=== PATIENT | male | born 1960 | race Caucasian/White ===

== ENCOUNTER 2021-12-04 09:36 | Day surgery (SDC) | payer MEDICARE ==
[2021-12-04] MEDS ORDERED: Lactated Ringers 1,000 ML IV ONE ×2 (09:46→13:08)
[2021-12-04] MEDS ORDERED: BETADINE 5% OPHTHALMIC 30 ML OP ONE (10:00)
[2021-12-04] MEDS ORDERED: TETRACAINE 0.5% STERI-UNIT SOL OP ONE ×2 (10:00)
[2021-12-04] MEDS ORDERED: Ak-Dilate OPHTHALMIC*** 1.065 ML, Cyclogyl 1% OPHTH SOL 1.065 ML, GATIFLOXACIN 0.5% OPH... OP ONE ×4 (10:00)
[2021-12-04] MEDS ORDERED: NON-FORMULARY ITEM OP ONE (10:00)
[2021-12-04] MEDS ORDERED: Lactated Ringers 1,000 ML IV SCH (10:00)
[2021-12-04] MEDS ORDERED: cefUROXime sodium 0.005 GM in Sodium Chloride Flush 30 ML*** 0.5 ML IJ ONE (10:00)
[2021-12-04] MEDS ORDERED: Xylocaine-Mpf 2% 5 Ml Vial ONE (12:47)
[2021-12-04] MEDS ORDERED: SUBLIMAZE 100 MCG/2 ML ONE (12:47)
[2021-12-04] MEDS ORDERED: DIPRIVAN 200 MG/20 ML IV ONE ×2 (12:47→13:04)
[2021-12-04] MEDS ORDERED: Versed 2 MG/2 ML Injection ONE (12:47)
[2021-12-04] MEDS ORDERED: Zofran 4 MG/2 ML VIAL IV PRN (13:00)
[2021-12-04] MEDS ORDERED: ACETAZOLAMIDE 250 MG TABLET PO ONE (13:00)
[2021-12-04] MEDS ORDERED: TRIMOXI 0.6 ML OPHTH INJECTION OP ONE (13:15)
[2021-12-04] MEDS ORDERED: MIOSTAT IO ONE (13:20)
[2021-12-04 13:34] VITALS: O2SAT 94
[2021-12-04 13:40] VITALS: PULSE 87
[2021-12-04 13:45] VITALS: BP 145/51
[2021-12-04] MEDS ORDERED: LIDOCAINE HCL 1% 50 MG/5 ML VL PF IJ ONE (15:01)
[2021-12-04] MEDS ORDERED: Epinephrine Preservative Free 1 MG/ML IJ ONE (15:01)
== END 2021-12-04 13:55 | disposition home or self-care (01) ==
LOC: SDC 09:36
PROVIDERS: ATTEND Ophthalmology
DX: H25.811 Combined forms of age-related cataract, right eye (principal)
CPT/HCPCS: 66982; C1780; J0171; J2001; J2250; J2704; J3010; A9270-GY